=== PATIENT | male | born 1955 | race Caucasian/White ===

== ENCOUNTER → 2022-01-23 13:16 | Outpatient (CLI) | payer MEDICARE, SELFPAY ==
[2022-01-23 18:15] LABS: Basophils # 0.1 K/mm3 (0-0.2); Basophils % 1.2 % (0.1-2.0); Eosinophils # 0.2 K/mm3 (0.0-0.4); Eosinophils % 1.7 % (0.1-12.0); Hematocrit 44.1 % (42.0-52.0); Lymphocytes # 1.9 K/mm3 (0.7-4.5); Lymphocytes % 20.7 % (10-50); Mean Corpuscular HGB Conc 31.9 g/dL (31.8-35.4); Mean Corpuscular Hemoglobin 31.7 pg (27.0-31.2); Mean Corpuscular Volume 99.4 fl (80-94); Mean Platelet Volume 8.7 fl (7.4-10.4); Monocytes # 0.5 K/mm3 (0.1-1.0); Monocytes % 5.7 % (1.7-9.3); Neutrophils # 6.5 K/mm3 (1.8-7.8); Neutrophils % 70.8 % (37.0-80.0); Platelet Count 356 K/mm3 (142-424); Red Blood Count 4.44 M/mm3 (4.60-6.20); Red Cell Distribution Width 13.9 % (11.5-17.5); White Blood Count 9.2 K/mm3 (4.8-10.8)
[2022-01-23 18:23] LABS: Alanine Aminotransferase 23 U/L (12-78); Albumin Level 4.4 g/dl (3.5-5.0); Albumin/Globulin Ratio 1.5 (1.1-1.8); Alkaline Phosphatase 113 U/L (38-126); Anion Gap 13.2 mEq/L (5-15); Aspartate Amino Transferase 36 U/L (17-59); Bilirubin,Total 0.7 mg/dl (0.2-1.3); Blood Urea Nitrogen 19 mg/dl (9-20); Calcium 9.6 mg/dl (8.4-10.2); Carbon Dioxide 22 mmol/L (22.0-30.0); Chloride 106 mmol/L (98-107); Chol/HDL Ratio 5.8 (1-3.5); Cholesterol 233 mg/dl (140-200); Estimated Glomerular Filt Rate 85 ml/min (>60); GFR (African American) 103 ML/MIN (>60); Glucose 93 mg/dl (74-100); HDL Cholesterol 40 mg/dl (40-60); Potassium 4.2 mmoL/L (3.5-5.1); Sodium 137 mmol/L (136-145); Total Protein,Serum 7.4 g/dl (6.3-8.2); Triglycerides 109 mg/dl (30-150); VLDL Cholesterol 22 mg/dL (0-40)
[2022-01-23 18:38] LABS: 25-OH Vitamin D, Total 49.2 ng/mL (30-100); Free T4 (Free Thyroxine) 0.81 ng/dl (0.78-2.19)
[2022-01-23 18:54] LABS: Prostate Specific Ag Screen 0.7 ng/ml (0.0-4.0); Thyroid Stimulating Hormone 0.93 uIU/mL (0.465-4.68)
[2022-01-25 08:29] LABS: Direct LDL Cholesterol 157 mg/dL (100-129)
== END ==
PROVIDERS: PCP Emergency Medicine; Visit Provider Emergency Medicine
DX: R53.83 Other fatigue (principal); E55.9 Vitamin D deficiency, unspecified; K21.9 Gastro-esophageal reflux disease without esophagitis; Z12.5 Encounter for screening for malignant neoplasm of prostate; R79.89 Other specified abnormal findings of blood chemistry
CPT/HCPCS: 80053; 80061; 82306; 84439; 84443; 85025; G0103

== ENCOUNTER → 2022-10-29 11:45 | Outpatient (CLI) | payer MEDICARE, SELFPAY ==
[2022-11-05 18:07] LABS: Lyme B. burgdorferi PCR Blood Negative (Negative)
== END ==
PROVIDERS: PCP Nurse Practitioner Family; Visit Provider Nurse Practitioner Family
DX: W57.XXXA Bitten or stung by nonvenomous insect and other nonvenomous arthropods, initial encounter (principal); Z11.9 Encounter for screening for infectious and parasitic diseases, unspecified
CPT/HCPCS: 87476

== ENCOUNTER → 2023-01-22 23:46 | Outpatient (CLI) | payer MEDICARE, SELFPAY ==
[2023-01-22 18:59] LABS: Basophils # 0.1 K/mm3 (0-0.2); Basophils % 0.7 % (0.1-2.0); Eosinophils # 0.1 K/mm3 (0.0-0.4); Eosinophils % 1.7 % (0.1-12.0); Hemoglobin 15.6 g/dL (14.1-18.0); Lymphocytes # 2.2 K/mm3 (0.7-4.5); Lymphocytes % 33.4 % (10-50); Mean Corpuscular HGB Conc 33.2 g/dL (31.8-35.4); Mean Corpuscular Hemoglobin 33.1 pg (27.0-31.2); Mean Corpuscular Volume 99.8 fl (80-94); Mean Platelet Volume 8.3 fl (7.4-10.4); Monocytes # 0.5 K/mm3 (0.1-1.0); Monocytes % 7.7 % (1.7-9.3); Neutrophils # 3.7 K/mm3 (1.8-7.8); Neutrophils % 56.5 % (37.0-80.0); Platelet Count 289 K/mm3 (142-424); Red Blood Count 4.71 M/mm3 (4.60-6.20); Red Cell Distribution Width 13.1 % (11.5-17.5); White Blood Count 6.6 K/mm3 (4.8-10.8)
[2023-01-22 19:35] LABS: Alanine Aminotransferase 36 U/L (12-78); Albumin Level 4.9 g/dl (3.5-5.0); Albumin/Globulin Ratio 1.6 (1.1-1.8); Alkaline Phosphatase 79 U/L (38-126); Anion Gap 15.5 mEq/L (5-15); Aspartate Amino Transferase 41 U/L (17-59); Bilirubin,Total 0.3 mg/dl (0.2-1.3); Blood Urea Nitrogen 19 mg/dl (9-20); Calcium 9.6 mg/dl (8.4-10.2); Carbon Dioxide 25 mmol/L (22.0-30.0); Chloride 106 mmol/L (98-107); Chol/HDL Ratio 7.3 (1-3.5); Cholesterol 256 mg/dl (140-200); Estimated Glomerular Filt Rate 75 ml/min (>60); GFR (African American) 91 ML/MIN (>60); Glucose 109 mg/dl (74-100); HDL Cholesterol 35 mg/dl (40-60); Potassium 4.5 mmoL/L (3.5-5.1); Sodium 142 mmol/L (136-145); Total Protein,Serum 7.9 g/dl (6.3-8.2); Triglycerides 288 mg/dl (30-150); VLDL Cholesterol 58 mg/dL (0-40)
[2023-01-22 19:46] LABS: Direct LDL Cholesterol 160.65 mg/dL (100-129)
[2023-01-22 19:57] LABS: 25-OH Vitamin D, Total 37.9 ng/mL (30-100)
[2023-01-22 20:07] LABS: Thyroid Stimulating Hormone 0.87 uIU/mL (0.465-4.68)
== END ==
PROVIDERS: PCP Emergency Medicine; Visit Provider Nurse Practitioner Family
DX: M54.9 Dorsalgia, unspecified (principal); E66.9 Obesity, unspecified; E55.9 Vitamin D deficiency, unspecified; R53.83 Other fatigue; Z68.33 Body mass index [BMI] 33.0-33.9, adult; Z79.899 Other long term (current) drug therapy
CPT/HCPCS: 80053; 80061; 82306; 84443; 85025

== ENCOUNTER → 2023-02-23 14:56 | Outpatient (CLI) | payer MEDICARE, SELFPAY ==
--- NOTE | 2023-02-23 14:57 | MR_ITS ---
FINAL REPORT CLINICAL HISTORY: Low Back Pain lower back pain since august 2022 numbness / tingling down left leg FINDINGS: Multiplanar MR imaging of the lumbar spine was performed without contrast. On the sagittal T2-weighted images, there is abnormal decreased signal throughout the lumbar discs with relative sparing at L5-S1. The vertebrae are of normal height. The vertebral alignment is normal. L1-2: There is no significant canal stenosis or neural foraminal narrowing. L2-3: There is a mild diffuse disc bulge with mild bilateral neural foraminal narrowing. L3-4: There is a mild diffuse disc bulge with posterolateral disc protrusions. There is moderate right and mild left neural foraminal narrowing. L4-5: There is a large left paracentral disc extrusion extending inferiorly with high-grade compromise on the left lateral recess. Findings are best seen on image 9 of series 3. L5-S1: There is no significant canal stenosis or neural foraminal narrowing. IMPRESSION: Large left paracentral disc extrusion at L4-L5 with high-grade compromise on the left lateral recess. Reviewed, Interpreted and Dictated by Lars Kulkarni MD Transcribed by Leon Bruce Authenticated and [facility]
== END ==
PROVIDERS: PCP Emergency Medicine; Visit Provider Nurse Practitioner Family
DX: M54.16 Radiculopathy, lumbar region (principal); M54.50 Low back pain, unspecified
CPT/HCPCS: 72148; 76376

== ENCOUNTER → 2023-03-29 10:42 | Outpatient (POV) | payer MEDICARE, SELFPAY ==
[2023-03-29 12:19] VITALS: BP 129/72; PULSE 64; RESP 18; O2SAT 96; BMI 31.7
--- NOTE | 2023-03-29 12:34 | EXP.PAIN.OV ---
HPI Data of Consult Patient: new to practice Consult date: 03/29/23 Requesting Physician: Jesus Celeste CRNA Primary Care Provider: Toro Parra MD Consult Narrative Reason for consult: Lumbar back pain. Bilateral hip and leg radicular symptoms. History of present illness: Mr. Sanderson is a 68 year old male who comes our clinic today for initial evaluation regarding chronic low back pain describes as constant, dull, aching. Patient also complained of bilateral hip and leg radicular symptoms to the knee. Patient had lumbar discectomy/laminectomy in 2005 at the L4-5 level. Patient describes over the last 3 to 6 months the pain has intensified in the low back area on the midline including bilateral hip and leg radicular symptoms. Patient received intramuscular injection of steroid in December 2022. Patient reports significant relief after receiving the injection. However, symptoms are continuing over the last several weeks to intensify. Patient's lumbar MRI shows multilevel disc bulge lumbar spine. Degenerative disc multiple levels lumbar spine. Lumbar postlaminectomy syndrome. Large disc extrusion at L4-5. I discussed in detail with the patient regarding lumbar epidural steroid injections. Discussed risk versus benefits. Patient very interested in having this intervention. He rates his pain today 10. CC: Jesus Celeste CRNA [facility] Disclaimer: The information contained in this section may have been updated after the patient was seen, as this information can be updated by other users. Medical History (Updated 03/29/23 @ 12:36 by Jesus Celeste CRNA) GERD (gastroesophageal reflux disease) HLD (hyperlipidemia) Social History (Updated 03/29/23 @ 12:28 by Violet Silva RN) Smoking Status: Former smoker alcohol intake: never substance use type: denies use current occupational status: retired Travel in the last 8 weeks: None Meds Home Medications and Allergies Home Medications Medication Instructions Recorded Confirmed Type esomeprazole magnesium 20 mg 20 mg PO DAILY 07/24/22 02/03/23 History capsule,delayed release magnesium 250 mg tablet 250 mg PO DAILY 07/24/22 02/03/23 History multivitamin (Multiple Vitamins 1 tab PO DAILY 07/24/22 02/03/23 History tablet) atorvastatin 10 mg tablet (Lipitor) 10 mg PO DAILY #30 tabs 02/03/23 02/03/23 Rx New Prescriptions to Start Prescriptions: Allergies Allergy/AdvReac Type Severity Reaction Status Date / Time No Known Allergies Allergy Verified 02/03/23 11:24 Assessment and Plan *Assessment and plan (1) Lumbar radiculopathy: Status: Acute Category: Medical Code(s): M54.16 - Radiculopathy, lumbar region (2) Low Back Pain: Status: Acute Category: Medical Code(s): M54.50 - Low back pain, unspecified Plan Discussed in detail with the patient regarding lumbar epidural steroid injection. Risk versus benefits. He wishes to proceed. I think this is reasonable given the fact that he has failed conservative treatments over the last 6 months such as NSAIDs, home exercise program, healthcare project manager. The patient continues taking Tylenol 650 mg 1-2 p.o. every 8 hours. Patient's [place] #[id number] of been reviewed and appropriate.
== END ==
PROVIDERS: PCP Emergency Medicine; Visit Provider Nurse Anesthetist, Certified Registered
DX: M54.16 Radiculopathy, lumbar region (principal); M54.50 Low back pain, unspecified
CPT/HCPCS: 99202; G0463

== ENCOUNTER 2023-04-13 08:41 | Day surgery (SDC) | payer MEDICARE, SELFPAY ==
[2023-04-13 08:50] VITALS: BP 138/71; PULSE 67; RESP 18; O2SAT 97; BMI 31.7
[2023-04-13 08:56] VITALS: BP 138/70; PULSE 76; RESP 20; O2SAT 100
[2023-04-13 09:04] VITALS: BP 138/70; PULSE 70; RESP 20; O2SAT 97
--- NOTE | 2023-04-13 09:06 | EXP.PAIN.PRO ---
Procedure Date: 04/13/23 Time: 09:00 Anesthesiologist:: Jesus Celeste CRNA Complications:: None Pre-procedure Diagnosis:: Degenerative disc lumbar spine multilevels. Lumbar radiculopathy. Lumbar postlaminectomy syndrome. Post-procedure Diagnosis:: Same. Indications for Procedure:: Patient is a very pleasant 68-year-old male that comes our clinic today for lumbar epidural steroid injections L4-5 level. Patient describes low back pain as constant, dull, aching. Patient also complained of bilateral hip and leg radicular symptoms. Procedure Details:: Procedure: Lumbar epidural steroid injection under fluoroscopy Informed consent was obtained and the risks and benefits of the procedure were explained to the patient. The patient was taken to the procedure room and noninvasive monitors placed, including noninvasive blood pressure cuff and pulse oximeter. The back was viewed using C-arm Fluoroscopy and prepped using Chloraprep as a cleansing solution and the L4-L5 interspace was palpated. Skin and subcutaneous tissues were anesthetized using lidocaine 1.5% and a 25-gauge needle. After this, an 18-gauge Touhy epidural needle was placed into the L4-L5 interspace and advanced using fluoroscopic guidance and loss of resistance to air until the epidural space was encountered. After confirmation of needle placement in the epidural space, with dye, a solution containing normal saline, 3 mL and Depo-Medrol 80 mg were incrementally injected into the lumbar epidural space. The patient tolerated the procedure well with no complications. The patient was observed in the Pain Clinic and then discharged home neurologically intact. Plan and Disposition:: Patient was discharged without incident.
[2023-04-13 09:07] VITALS: BP 133/78; PULSE 64; RESP 18; O2SAT 97
== END 2023-04-13 09:07 | disposition home or self-care (01) ==
PROVIDERS: PCP Emergency Medicine; Visit Provider Nurse Anesthetist, Certified Registered
DX: M51.16 Intervertebral disc disorders with radiculopathy, lumbar region (principal); M96.1 Postlaminectomy syndrome, not elsewhere classified
CPT/HCPCS: 62323; J1040

== ENCOUNTER 2023-07-21 21:46 | Outpatient (CLI) | payer MEDICARE, SELFPAY | END 2023-07-21 23:59 | LOC: LAB.DROPOF 21:47 | PROVIDERS: PCP Nurse Practitioner Family; Visit Provider Nurse Practitioner Family | DX: N39.0 Urinary tract infection, site not specified (principal) | CPT/HCPCS: 87086 ==

== ENCOUNTER 2024-03-15 09:48 | Outpatient (CLI) | payer MEDICARE, SELFPAY ==
[2024-03-15 18:55] LABS: Basophils # 0.1 K/mm3 (0-0.2); Basophils % 0.9 % (0.1-2.0); Eosinophils # 0.1 K/mm3 (0.0-0.4); Eosinophils % 1.4 % (0.1-12.0); Hematocrit 45.6 % (42.0-52.0); Hemoglobin 15.2 g/dL (14.1-18.0); Lymphocytes # 1.9 K/mm3 (0.7-4.5); Lymphocytes % 28.6 % (10-50); Mean Corpuscular HGB Conc 33.2 g/dL (31.8-35.4); Mean Corpuscular Hemoglobin 32.7 pg (27.0-31.2); Mean Corpuscular Volume 98.5 fl (80-94); Mean Platelet Volume 8.5 fl (7.4-10.4); Monocytes # 0.3 K/mm3 (0.1-1.0); Monocytes % 5.1 % (1.7-9.3); Neutrophils # 4.3 K/mm3 (1.8-7.8); Platelet Count 251 K/mm3 (142-424); Red Blood Count 4.63 M/mm3 (4.60-6.20); Red Cell Distribution Width 13.4 % (11.5-17.5); White Blood Count 6.7 K/mm3 (4.8-10.8)
[2024-03-15 19:10] LABS: Alanine Aminotransferase 32 U/L (12-78); Albumin Level 4.7 g/dl (3.5-5.0); Albumin/Globulin Ratio 1.7 (1.1-1.8); Alkaline Phosphatase 66 U/L (38-126); Anion Gap 7.3 mEq/L (5-15); Aspartate Amino Transferase 42 U/L (17-59); Bilirubin,Total 0.8 mg/dl (0.2-1.3); Blood Urea Nitrogen 20 mg/dl (9-20); Carbon Dioxide 26 mmol/L (22.0-30.0); Chloride 108 mmol/L (98-107); Chol/HDL Ratio 4.1 (1-3.5); Cholesterol 189 mg/dl (140-200); Estimated Glomerular Filt Rate 84 ml/min (>60); GFR (African American) 102 ML/MIN (>60); Globulin 2.7 g/dL (1.3-3.2); Glucose 105 mg/dl (74-100); HDL Cholesterol 46 mg/dl (40-60); Potassium 4.3 mmoL/L (3.5-5.1); Sodium 137 mmol/L (136-145); Total Protein,Serum 7.4 g/dl (6.3-8.2); Triglycerides 90 mg/dl (30-150); VLDL Cholesterol 18 mg/dL (0-40)
[2024-03-15 19:21] LABS: Direct LDL Cholesterol 121.38 mg/dL (100-129)
[2024-03-15 19:34] LABS: 25-OH Vitamin D, Total 40.3 ng/mL (30-100)
[2024-03-15 19:41] LABS: Prostate Specific Ag Screen 0.6 ng/ml (0.0-4.0); Thyroid Stimulating Hormone 1.01 uIU/mL (0.465-4.68)
[2024-03-15 20:22] LABS: Hemoglobin A1C 5.4 % (4.0-6.0)
== END 2024-03-15 23:59 | disposition home or self-care (01) ==
LOC: LAB.DROPOF 03-16 09:49
PROVIDERS: PCP Family Medicine; Visit Provider Family Medicine
DX: E55.9 Vitamin D deficiency, unspecified (principal); E78.5 Hyperlipidemia, unspecified; R73.03 Prediabetes; Z12.5 Encounter for screening for malignant neoplasm of prostate
CPT/HCPCS: 80053; 80061; 82306; 83036; 84443; 85025; G0103

== ENCOUNTER 2024-09-11 10:45 | Outpatient (CLI) | payer MEDICARE, SELFPAY ==
[2024-09-11 18:25] LABS: Chol/HDL Ratio 4.2 (1-3.5); Cholesterol 176 mg/dl (140-200); HDL Cholesterol 42 mg/dl (40-60); Triglycerides 137 mg/dl (30-150); VLDL Cholesterol 27 mg/dL (0-40)
[2024-09-11 18:36] LABS: Direct LDL Cholesterol 101.87 mg/dL (100-129)
== END 2024-09-11 23:59 | disposition home or self-care (01) ==
LOC: LAB.DROPOF 09-12 14:38
PROVIDERS: PCP Family Medicine; Visit Provider Family Medicine
DX: E78.5 Hyperlipidemia, unspecified (principal)
CPT/HCPCS: 80061

== ENCOUNTER 2025-05-24 11:34 | Outpatient (CLI) | payer MEDICARE, SELFPAY ==
--- OUTSIDE RECORDS SUMMARY | 2019-06-26 19:00 | XMS_ITS | Continuity of Care Document ---
Author Organization [facility] Address [address] [place] [address] Phone Care Team Providers Care Physical Therapy Manager Name Role Phone Ta OD, Melly Unavailable Unavailable Unavailable Unavailable Unavailable Allergies, Adverse Reactions, Alerts Substance Reaction Status Criticality No Known Allergies Active No Inform ation Advance Directives Directive Yes / No Effective Date File Name No Information Encounters Encounter Description Practice Location Reason(s) For Visit Diagnoses Date Provider [facility], [address] [place] [address], [facility], tel:[phone] [facility] Optical No Information 0 Ta Melly. [facility], [address] [place] [address], [facility], . tel:[phone] [place] [address], [address] [place] [address], [facility], tel:[phone] [place] routine vision exam (chief complaint) Myopia, bilateralDermatochalasis of right upper eyelidDermatochalasis of left upper eyelidCombined forms of age-related cataract, bilateralVitreous degeneration, bilateral 0 Ta Melly. [facility], [address] [place] [address], [facility], . tel:[phone] [facility], [address] [place] [address], [facility], tel:[phone] [place] routine vision exam (chief complaint) Myopia, bilateralCombined forms of age-related cataract, bilateral 7 Ta Melly. [facility], [address] [place] [address], [facility], . tel:[phone] [facility], [address] [place] [address], [facility], [place] tel:[phone] [place] Decreased vision (chief complaint) Refractive Error Unspecified Aug-3 0 5 Ta Melly. [facility], [address] [place], [address], [place]. tel:[phone] [facility], [address] [place], [address], tel:[phone] Carmela Vitreous Detachment, PosteriorRefractive Error Unspecified 1 No Information Family History Family Member Type Diagnosis Age At Onset Sister Problem (finding) degenerative disorder o f macula Sister Problem (finding) degenerative disorder o f macula Payers Payer name Insurance type Covered democrat ID Farshad ott(s) [facility] CI [id number] Social History Type Description Quantity Date Captured Comments Sex Male Smoking Status No Information Chief Complaint And Reason For Visit No Information History Of Present Illness Encounter Date Complaint History Of Prese nt Illness routine vision exam The 64 year old male presents for evaluation of routine vision exam in the right eye and left eye. Last eye exam was about 2 years ago. Patient is not noticing any actual vision changes in either distance or near vision but he has noticed problems with glare and night driving. The condition is stable. he is currently wearing a very old pair of glasses. he got super glue all over his most current glasses. routine vision exam The 62 year old male presents for 2 year evaluation of routine vision exam in the right eye and left eye. Wearing older pair of PAL glasses (2-3+ year old). Damaged last pair with super glue. Reports stable vision at distance and near. Has moderate glare difficulty when driving at night. Decreased vision The 59 year old male presents for evaluation of Decreased vision in the right eye and left eye with current glasses. It started about 1 month(s) ago. It occurs doing close work. The onset was gradual. It affects near vision. The symptom is frequent. The condition is significant. Taking his glasses off to read lately. Instructions Date Instruction Additional Infor mation Return in 2 years wi th Melly Barrientos, OD for vision/dilated exam. Related to Myopia, bilateral Impression/Plan - Po sterior vitreous detachment. Retinal detachment symptoms reviewed. Call immediately for flashes, floaters, decreased vision, curtains and/or shadows. Related to Vitreous degeneration, bilateral Follow up - Return i n 2 years with Melly Barrientos, OD for vision/dilated exam. Related to Myopia, bilateral Impression/Plan - Re fractive error. New glasses Rx given. Patient to return sooner than recall if vision changes are noted. Related to Myopia, bilateral Impression/Plan - De rmatochalasis. Patient is symptomatic, and desires evaluation. Schedule oculoplastics consultation with Dr. Nicolette NOLAND. Related to Dermatochalasis of right upper eyelid Impression/Plan - See plan above . Related to Dermatochalasis of left upper eyelid Impression/Plan - Ca taracts, presurgical, not affecting patient's activities of daily living. Patient to call if notes change in vision. New glasses prescription given. Related to Combined forms of age-related cataract, bilateral Return in PRN day wi th any Rehan MD for Cataract Consult. Related to Combined forms of age-related cataract, bilateral Return in 1 year wit h Melly Barrientos, OD for Vision Exam. Related to Myopia, bilateral Follow up - Return i n 1 year with Melly Barrientos, OD for Vision Exam. Related to Myopia, bilateral Impression/Plan - Re fractive error. New glasses Rx given. Related to Myopia, bilateral Follow up - Return i n PRN day with any Rehan MD for Cataract Consult. Related to Combined forms of age-related cataract, bilateral Impression/Plan - Ca taracts, accounts for visual complaints, affecting activities of daily living. Discussed surgical options. Refer to MD for cataract evaluation and surgery. Related to Combined forms of age-related cataract, bilateral Return in 2 years wi th Melly Ta, OD for Complete Exam. Related to Refractive Error Unspecified Follow up - Return i n 2 years with Melly Ta, OD for Complete Exam. Related to Refractive Error Unspecified Impression/Plan - Ne w glasses Rx was given today. Related to Refractive Error Unspecified - Return in 2 years with Howard Dowell MD for Complete Exam. Related to Refractive Error Unspecified Refractive Error Uns pecified OU Condition: worsening. - New glasses Rx was given today. Related to Refractive Error Unspecified Vitreous Detachment, Posterior OU Condition: stable. Vision: not affected. - Posterior Vitreous Detachment. Posterior Vitreous Detachment discussed. Patient counseled regarding signs and symptoms of retinal tear or detachment and to return to clinic martina prn. Related to Vitreous Detachment, Posterior Assessments Type Assessment Date No Information
[2025-05-24 16:12] LABS: Hematocrit 42.9 % (42.0-52.0); Hemoglobin 14.2 g/dL (14.1-18.0); Immature Granulocytes % 0.3 %; Mean Corpuscular HGB Conc 33.1 g/dL (31.8-35.4); Mean Corpuscular Hemoglobin 32.6 pg (27.0-31.2); Mean Corpuscular Volume 98.4 fl (80-94); Nucleated Red Blood Cells % 0 %; Platelet Count 269 K/mm3 (142-424); Red Blood Count 4.36 M/mm3 (4.60-6.20); Red Cell Distribution Width-SD 45.4 fL; White Blood Count 6.4 K/mm3 (4.8-10.8)
[2025-05-24 16:31] LABS: Alanine Aminotransferase 27 U/L (12-78); Albumin Level 4.7 g/dl (3.5-5.0); Albumin/Globulin Ratio 1.7 (1.1-1.8); Alkaline Phosphatase 84 U/L (38-126); Anion Gap 12.5 mEq/L (5-15); Aspartate Amino Transferase 35 U/L (17-59); Bilirubin,Total 0.5 mg/dl (0.2-1.3); Blood Urea Nitrogen 17 mg/dl (9-20); Calcium 9.5 mg/dl (8.4-10.2); Carbon Dioxide 24 mmol/L (22.0-30.0); Chloride 109 mmol/L (98-107); Creatinine,Serum 0.90 mg/dl (0.66-1.25); Estimated Glomerular Filt Rate 84 ml/min (>60); GFR (African American) 102 ML/MIN (>60); Globulin 2.8 g/dL (1.3-3.2); Glucose 108 mg/dl (74-100); Potassium 4.5 mmoL/L (3.5-5.1); Sodium 141 mmol/L (136-145); Total Protein,Serum 7.5 g/dl (6.3-8.2)
[2025-05-24 16:57] LABS: Thyroid Stimulating Hormone 1.04 uIU/mL (0.465-4.68)
--- OUTSIDE RECORDS SUMMARY | 2025-05-25 10:40 | XMS_ITS | Clinical Summary ---
Author Organization [facility] Address [address] [place] [address] Care Team Providers Care Senior Inspector Name Role Phone Pcp, No Primary Care Provider Unavailabl e Allergies No known active allergies Medications atorvastatin (Lipitor) 10 MG tablet 1 tablet (10 mg) 1 (one) time each day. 2023 Active naproxen (Naprosyn) 500 MG tablet As needed 01/12/2024 Active cephalexin (Keflex) 500 MG capsule 3 (three) times a day. 01/12/2024 Active oxyCODONE-acetam inophen (Percocet) 5-325 MG tablet TAKE 1 TABLET BY MOUTH EVERY 4 TO 6 HOURS NEEDED FOR PAIN 01/12/2024 Active famotidine (Pepcid) 20 MG tablet Take by mouth 1 (one) time each day. Active HYDROcodone-acet aminophen (Norman) 5-325 MG tablet Take 1 tablet (5 mg of hydrocodone ) by mouth every 6 (six) hours if needed for severe pain. 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 Social History Tobacco Use Types Packs/Day Years Used Date Smoking Tobacco: Never Smokeless Tobacco: Former Quit: 2013 Tobacco Cessation:Counseling Given: Not Answered Alcohol Use Standard Drinks/Week Comments Never 0 (1 standard drink = 0.6 oz pur e alcohol) PHQ-2 Answer Date Recorded Patient Health Questionnaire-2 Score 0 01/17/2024 Sex and Gender Information Value Date Recorded Sex Assigned at Not on file Legal Sex Male 9:29 AM EDT Gender Identity Not on file Sexual Orientation Not on file Last Filed Vital Signs Vital Sign Reading Time Taken Comments Blood Pressure 133/70 02/14/2024 9:07 AM EDT Pulse 67 02/14/2024 9:07 AM EDT Temperature 36.2 C (97.2 F) 02/14/2024 9:07 AM EDT Respiratory Rate 13 01/28/2024 11:45 AM EDT Oxygen Saturation 98% 02/14/2024 9:07 AM EDT Inhaled Oxygen Concentration - - Weight 93 kg (205 lb) 02/14/2024 9:07 AM EDT Height 174 cm (5' 8.5 ) 02/14/2024 9:07 AM EDT Body Mass Index 30.72 02/14/2024 9:07 AM EDT Plan of Treatment Health Maintenance Due Date Last Done Comments [facility]-Hepatitis C Screening 1955 [facility]-Medicare Annual Wellness (AWV) 1955 [facility]-Infant/Child/Adol SDOH Screenings 1955 [facility]- SDOH Screenings 1975 [facility]-Adult SDOH Screenings 1975 [facility]-DTaP,Tdap,and Td Vaccine s (1 - Tdap) 02/04/1976 CT Colonography 2002 Colonoscopy 2002 FIT-DNA 2002 FIT 2002 FOBT 2002 Sigmoidoscopy 2002 [facility]-Colorectal Cancer Screening 2002 [facility]-Pneumococcal Vaccine: 50 + Years (1 of 1 - PCV) 2007 [facility]-Depression Screening 01/16/2025 01/17/2024 [id number] Vaccine (1 - 2024- season) 2025 [facility]-Influenza Vaccine (#1) 2025 [facility]-RSV Vaccine: 60+ Years o r (1 - 1-dose 75+ series) 02/04/2032 [facility]-Zoster Vaccines Completed 09/22/2021, 07/19/2021 [facility]-Obesity Intervention Completed 024, 02/14/2024, 01/17/2024 HPV Vaccines (No Doses Required) Completed [facility]-HIB Vaccines Aged Out No longer e ligible based on patient's age to complete this topic [facility]-Hepatitis A Vaccines Aged Out No longer eligible based on patient's age to complete this topic [facility]-IPV Vaccines Aged Out No longer e ligible based on patient's age to complete this topic [facility]-Rotavirus Vaccines Aged Out No lo nger eligible based on patient's age to complete this topic Goals Goal Patient Goal Type Associated Problems Recent Progress Patient-Stated? Author Patient will verbalize understanding of orthotic wear , care and precautions. Occupational Therapy No Monique Chauhan Insurance MEDICARE Care Teams Senior Inspector Relationship Specialty Start Date End Date Pcp, No [address] [place] [address] PCP - General Family Medicine 01/17/24
== END 2025-05-24 23:59 | disposition home or self-care (01) ==
LOC: LAB.DROPOF 05-25 10:34
PROVIDERS: PCP Family Medicine; Visit Provider Family Medicine
DX: D75.89 Other specified diseases of blood and blood-forming organs (principal); E78.5 Hyperlipidemia, unspecified; Z12.5 Encounter for screening for malignant neoplasm of prostate
CPT/HCPCS: 80053; 84443; 85025; G0103